=== PATIENT | male | born 1960 ===

== ENCOUNTER 2019-02-15 09:53 | Outpatient (CLI) | payer MEDICAID | END 2019-02-15 23:59 | disposition home or self-care (01) | LOC: 64 CT 09:53 | PROVIDERS: ATTEND Specialist | DX: S14.109A Unspecified injury at unspecified level of cervical spinal cord, initial encounter (principal); M47.812 Spondylosis without myelopathy or radiculopathy, cervical region; M48.02 Spinal stenosis, cervical region; M43.23 Fusion of spine, cervicothoracic region; M25.78 Osteophyte, vertebrae; N17.9 Acute kidney failure, unspecified; X58.XXXA Exposure to other specified factors, initial encounter; Y93.89 Activity, other specified; Y92.89 Other specified places as the place of occurrence of the external cause; Y99.8 Other external cause status | CPT/HCPCS: 72125 ==